=== PATIENT | female | born 1990 | race Caucasian/White ===

== ENCOUNTER 2017-08-06 12:24 | Emergency (ER) | payer BC, MEDICAID, OTHER ==
[2017-08-06 12:40] VITALS: BP 136/87
[2017-08-06] MEDS ORDERED: IBUPROFEN 600 MG TAB PO ONE (13:13)
--- NOTE | 2017-08-06 13:43 | EDPHY ---
H & P Time Seen by Provider: 08/06/17 12:28 HPI/ROS: 26-year-old female presents complaining of tripping on a toy which ripped her toenail partially off. This same toe was injured approximately a week ago when she dropped a tool on it and it required trephination for a subungual hematoma. Review of systems As per HPI General no fever no chills no weakness HEENT no eye pain no eye discharge. No eye redness, no sore throat Respiratory no cough, no shortness of breath Cardiac no chest pain, no peripheral edema GI no abdominal pain, no diarrhea, no constipation, no nausea, no vomiting no flank pain, no hematuria, no dysuria Musculoskeletal no myalgias, no joint pain Heme no easy bruising, no easy bleeding Endo no polyuria, no polydipsia Skin no rashes, no pruritus Neuro no syncope, no dizziness, no headaches Psych is no suicidal ideation, no homicidal ideation Past Medical/Surgical History: Non contributory Social History: Denies alcohol or drug use Smoking Status: Never smoked Physical Exam: 26-year-old female Alert and oriented in no acute distress nontoxic appearance, afebrile Atraumatic normocephalic Neck no JVD Lungs clear to auscultation, no respiratory distress Heart regular rate and rhythm Extremities no cyanosis clubbing edema Left big toe-toenail partially avulsed and lateral aspect of proximal nail is overlying eponychium No evidence of gross lacerations no toe swelling Good capillary refill Constitutional: Initial Vital Signs Temperature (C) 37.1 C 08/06/17 12:32 Heart Rate 102 H 08/06/17 12:32 Respiratory Rate 16 08/06/17 12:32 Blood Pressure 136/87 H 08/06/17 12:32 O2 Sat (%) 99 08/06/17 12:32 O2 Delivery Mode Room Air Allergies/Adverse Reactions: No Known Allergies Allergy (Unverified 02/08/09 14:14) Home Medications: Medication Instructions Recorded None 02/08/09 Amoxicillin Trihydrate 500 mg PO Q12 7 Days cap 05/19/09 [Amoxicillin 500mg cap] Depo-Testosterone 05/19/09 Medical Decision Making Procedures: Procedure-digital block, toenail manipulation Digital block with 1% lidocaine and 0.5% bupivacaine both without epinephrine approximately 3 cc used for left great toe. Proximal toenail replaced under eponychium after area being gently cleansed with Guzman's baby shampoo and water and then irrigated with sterile saline. Patient tolerated replacement of toenail without difficulty. ED Course/Re-evaluation: Patient seen and evaluated for partial toenail avulsion Impression Toenail avulsion, partial Plan Replaced nail that was outside of eponychium to act as an active splint for new nail to grow when Keep clean and dry Return as needed - Data Points Medications Given: Discontinued Medications Ibuprofen (Motrin) 600 mg PO EDNOW ONE Stop: 08/06/17 13:14 Last Admin: 08/06/17 13:18 Dose: 600 mg Departure - Departure Disposition: Home, Routine, Self-Care Clinical Impression: Avulsion of toenail of left foot Condition: Good Instructions: Nail Avulsion (ED) Additional Instructions: Keep toe clean and dry Try not to catch it on anything or rip nail off until new nail starts growing out and pushes out this loose nail. It is basically acting as a splint to keep the near end of the nailbed open There is no sign of infection. Referrals: WILFREDO LAWRENCE [Primary Care Provider] - As per Instructions
== END 2017-08-06 14:00 | disposition home or self-care (01) ==
LOC: CED 12:24
PROC: 0HBRXZZ Excision of Toe Nail, External Approach (ICD-10-PCS; principal; 2017-08-06)
DX: S91.202A Unspecified open wound of left great toe with damage to nail, initial encounter (principal); W20.8XXA Other cause of strike by thrown, projected or falling object, initial encounter